=== PATIENT | male | born 1975 | race Two or more races ===

== ENCOUNTER 2020-01-18 16:24 | Emergency (ER) | payer OTHER ==
[~2020-01-18] VITALS: Ht 167.6 cm; Wt 65.0 kg
[2020-01-18] MEDS ORDERED: cyclobenzaprine 10mg tablet PO ONE (17:00)
[2020-01-18] MEDS ORDERED: ketorolac trometh. 30mg/ml inj. IM ONE (17:00)
[2020-01-18] MEDS ORDERED: IBUP-1984 PO (17:04)
[2020-01-18] MEDS ORDERED: CYCL-394 PO (17:04)
--- NOTE | 2020-01-18 17:17 | NUR ---
patient refused toradol, does not want injection.
[2020-01-18 17:21] VITALS: BP 136/72
== END 2020-01-18 17:20 | disposition home or self-care (01) ==
LOC: ER 16:25
DX: S39.012A Strain of muscle, fascia and tendon of lower back, initial encounter (principal); Z79.899 Other long term (current) drug therapy; V49.88XA Car occupant (driver) (passenger) injured in other specified transport accidents, initial encounter; Y93.89 Activity, other specified; Y92.89 Other specified places as the place of occurrence of the external cause; Y99.8 Other external cause status
CPT/HCPCS: 99283